=== PATIENT | male | born 1970 | race Caucasian/White ===

== ENCOUNTER 2020-08-29 17:11 | Emergency (ER) | payer MEDICAID ==
[~2020-08-29] VITALS: Ht 185.4 cm; Wt 106.0 kg
[2020-08-29] MEDS ORDERED: SODIUM CHLORIDE FLUSH 10ML SYR IVF ONE (18:00)
--- NOTE | 2020-08-29 18:26 | NUR ---
pt resting in bed, denies any pain, awaiting ct
[2020-08-29 18:28] LABS: ALBUMIN 4.7 g/dL (3.4-5.0); ANION GAP 7 mmol/L (5-15); CALCIUM 9.7 mg/dL (8.5-10.1); CHLORIDE 108 mmol/L (98-107); CREATININE 1.38 mg/dL (0.7-1.3)
[2020-08-29 18:34] LABS: BASOPHILS % (AUTO) 1 % (0-1); EOSINOPHILS % (AUTO) 1 % (1-7); LYMPHOCYTES % (AUTO) 20 % (22-44); MEAN CORPUSCULAR HEMOGLOBIN 31.6 pg (27.5-34.5); MEAN CORPUSCULAR HGB CONC 34.3 g/dL (33.2-36.2); MONOCYTES % (AUTO) 9 % (2-9); NEUTROPHILS % (AUTO) 69 % (42-75); PLATELET COUNT 468 x10^3/uL (130-400); RED BLOOD COUNT 5.09 x10^6/uL (4.38-5.82); RED CELL DISTRIBUTION WIDTH 13.2 % (9.4-14.8)
--- NOTE | 2020-08-29 18:55 | NUR ---
REPORT RECIEVED FROM ALDAIR RODRIGEZ. PT AT CT AT THIS TIME
[2020-08-29 19:04] LABS: MICROSCOPIC NOT IND
[2020-08-29] MEDS ORDERED: OMNIPAQUE 350 MG/ML, 100ML BOTTLE ONE (19:06)
[2020-08-29 19:15] LABS: MD SCAN
--- NOTE | 2020-08-29 19:15 | NUR ---
PT BACK FROM CT, STATES NO PAIN AT THIS TIME, RESTING IN BED COMFORTABLY.
[2020-08-29 20:08] VITALS: BP 120/86
[2020-08-29] MEDS ORDERED: ACETAMINOPHEN 325 MG TABLET ONE (20:14)
--- NOTE | 2020-08-29 20:20 | NUR ---
MORLEY INSERTED WITHOUT ANY ISSUES, 1700 ML OUTPUT NOTED
[2020-08-29] MEDS ORDERED: PHENAZOPYRIDINE 200 MG TABLET ONE (20:31)
--- NOTE | 2020-08-29 20:47 | NUR ---
urology at bedside
[2020-08-29] MEDS ORDERED: PHENAZOPYRIDINE 200 MG TABLET PO ONE (21:00)
[2020-08-29] MEDS ORDERED: ACETAMINOPHEN 325 MG TABLET PO ONE (21:00)
== END 2020-08-29 21:19 | disposition home or self-care (01) ==
LOC: ED 18:31
DX: N40.1 Benign prostatic hyperplasia with lower urinary tract symptoms (principal); R33.8 Other retention of urine; N18.2 Chronic kidney disease, stage 2 (mild)
CPT/HCPCS: 36415; 51702; 74177; 80048; 81003; 82040; 85025; 99285; Q9967

== ENCOUNTER → 2020-08-29 | Outpatient (CLI) | payer MEDICAID | END | disposition home or self-care (01) | LOC: RAD 16:03 | PROVIDERS: ATTEND Nurse Practitioner Family | DX: N13.30 Unspecified hydronephrosis (principal); N32.89 Other specified disorders of bladder; N13.4 Hydroureter; M51.37 Other intervertebral disc degeneration, lumbosacral region; M48.07 Spinal stenosis, lumbosacral region; K57.92 Diverticulitis of intestine, part unspecified, without perforation or abscess without bleeding | CPT/HCPCS: 74176 ==

== ENCOUNTER 2020-09-04 19:16 | Emergency (ER) | payer MEDICAID ==
[~2020-09-04] VITALS: Ht 185.4 cm; Wt 107.7 kg
--- NOTE | 2020-09-04 19:48 | NUR ---
PT COMES IN WITH COMPLAINTS OF HIS CATHETER FEELING LIKE ITS BEING PULLED. PT STATED THAT IT WAS PLACED LAST WEEK, HE STATED THAT IT HAS BEEN DRAINING APPORIATELY WITH NO ISSUES. NOTED TO HAVE AN 'FEW' SMALL CLOTS IN THE BAG THIS EVENING AND THAT WHY HE DECIDED TO COME IN TO THE HOSPITAL. CATH BAG NOTED TO HAVE YELLOW URINE. PT NOTED TO BE RESTING COMFORTABLY AT THIS TIME, WILL CON'T TO MONITOR
[2020-09-04] MEDS ORDERED: LIDOCAINE 2%,20 ML JEL.PF.APP MM ONE ×2 (20:25→20:30)
[2020-09-04 20:44] VITALS: BP 139/90
== END 2020-09-04 20:59 | disposition home or self-care (01) ==
LOC: ED 19:40
DX: T83.098A Other mechanical complication of other urinary catheter, initial encounter (principal)
CPT/HCPCS: 51700; 99284

== ENCOUNTER → 2020-10-12 | Outpatient (CLI) | payer MEDICAID ==
[~2020-10-12] MED LIST: OMNIPAQUE 350 MG/ML, 150 ML BOTTLE ONE
== END | disposition home or self-care (01) ==
LOC: CFH 12:37
PROVIDERS: ATTEND Urology
DX: N28.1 Cyst of kidney, acquired (principal); N13.30 Unspecified hydronephrosis; M51.36 Other intervertebral disc degeneration, lumbar region; N32.3 Diverticulum of bladder
CPT/HCPCS: 74178; Q9967

== ENCOUNTER 2020-11-03 14:16 | Day surgery (SDC) | payer MEDICAID ==
[~2020-11-03] VITALS: Ht 185.4 cm; Wt 107.8 kg
[2020-11-03 14:48] VITALS: BP 143/91
[2020-11-03] MEDS ORDERED: LACTATED RINGERS 1,000 ML IV SCH (15:00)
[2020-11-03] MEDS ORDERED: CHLORHEXIDINE 15 ML UDC MM ONE (15:00)
[2020-11-03] MEDS ORDERED: VANCOMYCIN 1,500 MG in SODIUM CHLORIDE 0.9% 250 ML IV ONE (15:05)
[2020-11-03] MEDS ORDERED: tamsulosin (15:18)
[2020-11-03] MEDS ORDERED: bactrim PO (15:18)
[2020-11-03] MEDS ORDERED: MIDAZOLAM 1 MG/ML, 2ML ONE (17:21)
[2020-11-03] MEDS ORDERED: FENTANYL PF 250 MCG/5ML ONE (17:21)
[2020-11-03] MEDS ORDERED: PROPOFOL 10 MG/ML, 20ML ONE (17:22)
[2020-11-03] MEDS ORDERED: GENTAMICIN 80 MG/2 ML ONE (17:40)
[2020-11-03] MEDS ORDERED: DEXAMETHASONE 4 MG/ML, 1ML ONE (19:05)
[2020-11-03] MEDS ORDERED: SUCCINYLCHOLINE 20 MG/ML, 10ML ONE (19:05)
[2020-11-03] MEDS ORDERED: ROCURONIUM 10 MG/ML,10ML ONE (19:05)
[2020-11-03] MEDS ORDERED: HYDROmorphone 1 MG/ML, 1ML INJ IVPush PRN (20:30)
[2020-11-03] MEDS ORDERED: MIDAZOLAM 1 MG/ML, 2ML IV PRN (20:30)
[2020-11-03] MEDS ORDERED: ACETAMINOPHEN 325 MG TABLET PO PRN (20:30)
[2020-11-03] MEDS ORDERED: FENTANYL PF 100 MCG/2ML IV PRN (20:30)
[2020-11-03] MEDS ORDERED: ALBUTEROL SULFATE 2.5 MG/3 ML NPPB PRN (20:30)
[2020-11-03] MEDS ORDERED: hydrALAzine 20 MG/ML, 1ML IV PRN (20:30)
[2020-11-03] MEDS ORDERED: KETOROLAC 30 MG/1 ML ONE (20:30)
[2020-11-03] MEDS ORDERED: DIAZEPAM 5 MG/ML, 2ML IVPush PRN (20:30)
[2020-11-03] MEDS ORDERED: PROMETHAZINE 25 MG/ML, 1ML IVPush PRN (20:30)
[2020-11-03] MEDS ORDERED: PROMETHAZINE 12.5 MG SUPP PR PRN (20:30)
[2020-11-03] MEDS ORDERED: KETOROLAC 30 MG/1 ML IVPush PRN (20:30)
[2020-11-03] MEDS ORDERED: LABETALOL 5MG/ML, 20ML IV PRN (20:30)
[2020-11-03] MEDS ORDERED: EPHEDRINE 50 MG/ML, 1ML IVPush PRN (20:30)
[2020-11-03] MEDS ORDERED: DIPHENHYDRAMINE 50 MG/ML, 1ML IVPush PRN (20:30)
[2020-11-03] MEDS ORDERED: ONDANSETRON 2MG/ML, 2ML IVPush PRN (20:30)
[2020-11-03] MEDS ORDERED: OXYcodone 5 MG/5 ML ORAL.SOL UDC PO PRN (20:30)
[2020-11-03] MEDS ORDERED: ACETAMINOPHEN 650 MG/20.3 ML UDC ONE (20:30)
[2020-11-03] MEDS ORDERED: MEPERIDINE/PF 25MG/0.5ML IVPush PRN (20:30)
[2020-11-03] MEDS ORDERED: OXYcodone 5 MG/5 ML ORAL.SOL UDC ONE (20:31)
[2020-11-03] MEDS ORDERED: FENTANYL PF 100 MCG/2ML ONE (20:31)
[2020-11-03] MEDS ORDERED: OPIUM/BELLADONNA SUPP.RECT 16.2-30 MG ONE (21:45)
[2020-11-03] MEDS ORDERED: OPIUM/BELLADONNA SUPP.RECT 16.2-30 MG PR PRN (22:00)
== END 2020-11-03 23:59 | disposition home or self-care (01) ==
LOC: OR 14:16
PROVIDERS: ATTEND Urology
DX: N40.1 Benign prostatic hyperplasia with lower urinary tract symptoms (principal); R33.8 Other retention of urine; N13.9 Obstructive and reflux uropathy, unspecified; N32.3 Diverticulum of bladder; Z20.828 Contact with and (suspected) exposure to other viral communicable diseases; Z79.899 Other long term (current) drug therapy; Z72.89 Other problems related to lifestyle
CPT/HCPCS: 52601; 88305; J0330; J1100; J1580; J2250; J2704; J3010; J3370; J7050; J7120; U0003

== ENCOUNTER → 2021-03-09 | Outpatient (CLI) | payer MEDICAID ==
[~2021-03-09] MED LIST changes: -OMNIPAQUE 350 MG/ML, 150 ML BOTTLE ONE; +bactrim PO; +tamsulosin
[2021-03-09 11:47] LABS: BASOPHILS % (AUTO) 1 % (0-1); EOSINOPHILS % (AUTO) 1 % (1-7); LYMPHOCYTES % (AUTO) 26 % (22-44); MEAN CORPUSCULAR HEMOGLOBIN 32.4 pg (27.5-34.5); MEAN PLATELET VOLUME 8.5 fL (7.4-10.4); MONOCYTES % (AUTO) 9 % (2-9); NEUTROPHILS % (AUTO) 64 % (42-75); PLATELET COUNT 350 x10^3/uL (130-400); RED BLOOD COUNT 4.95 x10^6/uL (4.38-5.82); RED CELL DISTRIBUTION WIDTH 13.5 % (9.4-14.8)
[2021-03-09 11:56] LABS: MICROSCOPIC NOT IND
[2021-03-09 12:07] LABS: MD NO
[2021-03-09 12:14] LABS: ALANINE AMINOTRANSFERASE 35 U/L (12-78); ALBUMIN 4.1 g/dL (3.4-5.0); ANION GAP 3 mmol/L (5-15); CALCIUM 9.1 mg/dL (8.5-10.1); CHLORIDE 110 mmol/L (98-107); CREATININE 0.91 mg/dL (0.7-1.3)
[2021-03-09 12:16] LABS: ALKALINE PHOSPHATASE 47 U/L (45-117); BILIRUBIN,TOTAL 0.6 mg/dL (0.2-1.0); TOTAL PROTEIN 7.2 g/dL (6.4-8.2)
== END | disposition home or self-care (01) ==
LOC: STAR 10:26
PROVIDERS: ATTEND Urology
DX: Z01.812 Encounter for preprocedural laboratory examination (principal); N32.3 Diverticulum of bladder; Z20.822 Contact with and (suspected) exposure to COVID-19
CPT/HCPCS: 36415; 80053; 81003; 85025; 87086; U0003

== ENCOUNTER 2021-03-28 10:32 | Outpatient (CLI) | payer MEDICAID ==
[~2021-03-28 10:32] MED LIST changes: +OXYB5TAB10 PO; +SULF-23 PO
== END 2021-03-28 23:59 | disposition home or self-care (01) ==
LOC: RAD 10:32
PROVIDERS: ATTEND Urology
DX: N32.3 Diverticulum of bladder (principal)
CPT/HCPCS: 51600; 74430; Q9958

== ENCOUNTER → 2021-04-19 | Outpatient (CLI) | payer MEDICAID ==
[~2021-04-19] MED LIST changes: +OMNIPAQUE 350 MG/ML, 100ML BOTTLE ONE
== END | disposition home or self-care (01) ==
LOC: CFH 13:19
PROVIDERS: ATTEND Urology
DX: K57.30 Diverticulosis of large intestine without perforation or abscess without bleeding (principal); R91.1 Solitary pulmonary nodule
CPT/HCPCS: 74177; Q9967

== ENCOUNTER → 2021-05-04 | Outpatient (CLI) | payer MEDICAID ==
[~2021-05-04] MED LIST changes: -OMNIPAQUE 350 MG/ML, 100ML BOTTLE ONE
== END | disposition home or self-care (01) ==
LOC: PETCFH 09:43
PROVIDERS: ATTEND Urology
DX: R91.1 Solitary pulmonary nodule (principal)
CPT/HCPCS: 78815; A9552